=== PATIENT | female | born 2000 | race Two or more races ===

== ENCOUNTER 2019-02-27 04:48 | Emergency (ER) | payer OTHER ==
[2019-02-27 06:21] VITALS: BP 135/80
--- NOTE | 2019-02-27 07:12 | ER Document Report ---
HPI - HPI Time Seen by Provider: 02/27/19 06:57 Pain Level: 2 Context: Patient is a 19-year-old female that comes emergency department for chief complaint of cough, congestion, runny nose since yesterday. She states that she woke up and coughed out a lot of mucus which was clear. She reports pain in her chest with cough. She denies fever, she did vomit once yesterday but states this is because she is 12 weeks and she has had a lot of vomiting in the first trimester. She denies abdominal pain, vaginal bleeding or discharge, headache. She states that her has the exact same symptoms and he got her sick. She states that he has been treated for an ear infection and she wants to be checked out. She denies any daily medications, [place] [employer] [place] she denies any diagnosed medical problems. She denies smoking. - CARDIOVASCULAR Cardiovascular: REPORTS: Chest pain - RESPIRATORY Respiratory: REPORTS: Coughing - REPRODUCTIVE LMP: 12/04 Reproductive: REPORTS: : Past Medical History - General Information source: Patient - Social History Smoking Status: Never Smoker Chew tobacco use (# tins/day): No Frequency of alcohol use: None Drug Abuse: None Lives with: Family Family History: Reviewed & Not Pertinent Patient has suicidal ideation: No Patient has homicidal ideation: No - Medical History Medical History: Negative Surgical Hx: Negative - Immunizations Immunizations up to date: Yes Hx Diphtheria, Pertussis, Tetanus Vaccination: Yes Vertical Provider Document - CONSTITUTIONAL General Appearance: WD/WN, No Apparent Distress - INFECTION CONTROL TRAVEL OUTSIDE OF THE [place] IN LAST 30 DAYS: No - HEENT HEENT: Atraumatic, Normocephalic. negative: Normal ENT Exam - Nontender sinuses. Rhinorrhea, sinus congestion, mild erythema of the posterior pharynx without swelling or exudates, normal ENT exam otherwise including ears. - NECK Neck: Normal Inspection - RESPIRATORY Respiratory: Breath Sounds Normal, No Respiratory Distress, Other - Occasional congested cough, clear lungs, no tachypnea or respiratory distress. - CARDIOVASCULAR Cardiovascular: Regular Rate, Regular Rhythm - GI/ABDOMEN Gastrointestinal: Abdomen Soft, Abdomen Non-Tender. negative: Abdomen Tender - BACK Back: Normal Inspection - MUSCULOSKELETAL/EXTREMETIES Musculoskeletal/Extremeties: MAEW, FROM, Non-Tender - NEURO Level of Consciousness: Awake, Alert, Appropriate Motor/Sensory: No Motor Deficit, No Sensory Deficit - DERM Integumentary: Warm, Dry, No Rash Course - Re-evaluation Re-evalutation: Patient is borderline tachycardic on vital signs but not on my exam. Lungs clear. She has a lot of congestion and occasional cough. No fever. She is talkative and well-appearing. She has a clear viral exposure. I did discuss possibility of a chest x-ray and additional work-up but this was declined. Patient asking for options that she can take for her symptoms and asking for nausea medication for first trimester vomiting. She declines nausea medication now or treatment now for this. Patient will be prescribed recommended medications, given nausea medication, discussed follow-up, discussed return precautions. Patient stable at time of discharge. - Vital Signs Vital signs: Temp Pulse Resp BP Pulse Ox 97.6 F 108 H 17 135/80 H 100 02/27/19 06:18 02/27/19 06:18 02/27/19 06:18 02/27/19 06:18 02/27/19 06:18 Discharge - Discharge Clinical Impression: Cough, Sinus congestion Upper respiratory infection Qualifiers: URI type: unspecified URI Qualified Code(s): J06.9 - Acute upper respiratory infection, unspecified Condition: Stable Disposition: HOME, SELF-CARE Additional Instructions: Your evaluation is consistent with a viral upper respiratory infection. I recommend the nasal spray, the antihistamine, continue Benadryl, continue Tylenol, drink plenty fluids and rest. Take the Reglan as needed for nausea. Follow-up with primary care. Return for any concerning or worsening symptoms including difficulty breathing, spiking fevers, uncontrolled vomiting, passing out, or any other concerning or worsening symptoms. Prescriptions: Cetirizine HCl [All Day Allergy] 10 mg PO DAILY #30 tablet Fluticasone Propionate [Flonase Nasal [place] 50 Mcg/[place] 16 gm] 2 sprays NASL Q12 #1 inhaler Metoclopramide HCl [Reglan] 5 mg PO ASDIR PRN #30 tablet PRN Reason: Forms: Return to Work
== END 2019-02-27 07:22 | disposition home or self-care (01) ==
LOC: ER 04:48
DX: O99.511 Diseases of the respiratory system complicating pregnancy, first trimester (principal); J06.9 Acute upper respiratory infection, unspecified; O26.891 Other specified pregnancy related conditions, first trimester; R05 Cough; R07.9 Chest pain, unspecified; R09.81 Nasal congestion; J34.89 Other specified disorders of nose and nasal sinuses; O21.9 Vomiting of pregnancy, unspecified; Z3A.12 12 weeks gestation of pregnancy; Z20.828 Contact with and (suspected) exposure to other viral communicable diseases
CPT/HCPCS: 99283